=== PATIENT | male | born 1975 | race Caucasian/White ===

== ENCOUNTER 2017-06-27 08:52 | Day surgery (SDC) | payer BC ==
[2017-06-27] MEDS ORDERED: LIDOCAINE 2% INJ 100 MG/5 ML SDV (FOR ANES.) As Ordered (08:58)
[2017-06-27] MEDS: NS 1,000 ML IV (09:00)
[2017-06-27] MEDS ORDERED: fentaNYL 100 MCG/2 ML INJECTION (J3010) As Ordered (09:50)
[2017-06-27] MEDS ORDERED: PROPOFOL 200 MG/20 ML VIAL As Ordered (10:01)
== END 2017-06-27 10:34 | disposition home or self-care (01) ==
LOC: M OPP 08:52
DX: R13.10 Dysphagia, unspecified (principal); K21.9 Gastro-esophageal reflux disease without esophagitis; R12 Heartburn; M19.90 Unspecified osteoarthritis, unspecified site; Z79.899 Other long term (current) drug therapy
CPT/HCPCS: 43235